=== PATIENT | female | born 1995 | race Caucasian/White ===

== ENCOUNTER 2020-09-01 06:47 | Emergency (ER) | payer OTHER, MEDICAID, SELFPAY ==
[2020-09-01 06:55] VITALS: BP 118/59; PULSE 91; RESP 16; O2SAT 96; BMI 29.2
--- NOTE | 2020-09-01 06:57 | XR_ITS ---
EXAMINATION: XR ANKLE, RIGHT CLINICAL INFORMATION: Pain COMPARISON: None TECHNIQUE: AP, lateral, and mortise views of the right ankle. FINDINGS: Ankle mortise symmetric without fracture at the medial or lateral malleoli. There is a tiny ossific fragment posterior to the trigonum of the talus without associated soft tissue swelling seen. No additional findings. XR/XR ankle RT min 3V IMPRESSION: Normal alignment. No visible ankle fracture is seen. Tiny ossific fragment posterior to the talus is of uncertain acuity, correlate with any symptoms in this region.
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
== END 2020-09-01 08:09 | disposition home or self-care (01) ==
PROVIDERS: Emergency Provider Emergency Medicine Emergency Medical Services
DX: S09.90XA Unspecified injury of head, initial encounter (principal); V43.52XA Car driver injured in collision with other type car in traffic accident, initial encounter; Y93.89 Activity, other specified; Y92.414 Local residential or business street as the place of occurrence of the external cause; Y99.9 Unspecified external cause status
CPT/HCPCS: 73610; 99283